=== PATIENT | female | born 1950 ===

== ENCOUNTER → 2020-03-21 | Outpatient (CLI) | payer MEDICARE, BC ==
--- NOTE | 2020-03-25 15:24 | RAD ---
DATE: 03/21/2020 2:53 PM EXAM: MAMMO [place] SCREENING BILATERAL HISTORY: Screening COMPARISON: 02/10/2018 Bilateral CC and MLO views of the breasts were performed. Bilateral breast tomosynthesis was performed in CC and MLO projections. This study was interpreted with the benefit of Computerized Aided Detection (CAD). FINDINGS: Breast Density: HETERO The breast parenchyma Is heterogeneously dense, which could reduce sensitivity of mammography. Breast parenchyma level C No suspicious masses, microcalcifications or architectural distortion is present to suggest malignancy in either breast. The visualized axillae are unremarkable. IMPRESSION: No mammographic evidence of malignancy. BI-RADS CATEGORY: 1 NEGATIVE RECOMMENDED FOLLOW-UP: 12M 12 MONTH FOLLOW-UP Annual screening mammography is recommended, unless clinically indicated sooner based on symptoms or change in physical exam. PQRS compliance statement: Patient information was entered into a reminder system with a target due date for the next mammogram. Mammography is a sensitive method for finding small breast cancers, but it does not detect them all and is not a substitute for careful clinical examination. A negative mammogram does not negate a clinically suspicious finding and should not result in delay in biopsying a clinically suspicious abnormality. "Our facility is accredited by the [employer] Mammography Program."
== END ==
LOC: MAMMO 14:42
PROVIDERS: ATTEND Internal Medicine
DX: Z12.31 Encounter for screening mammogram for malignant neoplasm of breast (principal); N64.89 Other specified disorders of breast
CPT/HCPCS: 77063; 77067

== ENCOUNTER 2020-10-11 15:22 | Emergency (ER) | payer MEDICARE, BC ==
[~2020-10-11] VITALS: Ht 152.4 cm; Wt 66.5 kg
--- NOTE | 2020-10-11 15:43 | PHYS DOC ---
Past History Past Medical History: Asthma, High Cholesterol, Hypertension Adult General Chief Complaint Chief Complaint: CHEST PAIN HPI HPI Patient is a 70-year-old female presenting for chest pain. Onset was approximately 2 hours prior to arrival while working at [employer]. Nothing known makes better or worse. Patient describes sharp pain that is deep over left breast with mild radiation into left shoulder. Timing of symptoms has been constant. Patient cites current pain as 7/10 in severity. Patient tried taking Tums, Pepto-Bismol and anti-gas medications in attempt to alleviate her symptoms without significant relief concerning her enough to transport herself here for evaluation. No prior cardiac history, no history of provocative cardiac testing in the past, she does take 81 mg aspirin daily and a statin. Denies tobacco, alcohol and illicit drug use. Review of Systems Review of Systems Fourteen body systems of review of systems have been reviewed. See HPI for pertinent positives and negative responses, other velazquez all other systems are negative, non-pertinent or non-contributory Allergies Allergies Allergies Coded Allergies Type Severity Reaction Last Updated Verified diclofenac Allergy Unknown 10/11/20 Yes fluoxetine Allergy Unknown 10/11/20 Yes Physical Exam Physical Exam Constitutional: Well developed, well nourished, no acute distress, non-toxic appearance. HENT: Normocephalic, atraumatic, bilateral external ears normal, oropharynx moist, no oral exudates, nose normal. Eyes: PERRLA, EOMI, conjunctiva normal, no discharge. Neck: Normal range of motion, no tenderness, supple, no stridor. Cardiovascular: Heart rate regular, sinus rhythm, no murmurs rubs or gallops Lungs & Thorax: Bilateral breath sounds clear to auscultation Abdomen: Bowel sounds normal, soft, no tenderness, no masses, no pulsatile masses. Nonsurgical abdomen, no peritoneal signs Skin: Warm, dry, no erythema, no rash. Back: No tenderness, no CVA tenderness. Extremities: No tenderness, no cyanosis, no clubbing, ROM intact, no edema. Neurologic: Alert and oriented X 3, grossly normal motor & sensory function, no focal deficits noted. Psychologic: Affect normal, judgement normal, anxious mood Current Patient Data Vital Signs Vital Signs Date Time Temp Pulse Resp B/P (MAP) Pulse Ox O2 Delivery O2 Flow Rate FiO2 10/11/20 15:34 98.1 66 21 136/63 (87) 95 Room Air Vital Signs Date Time Temp Pulse Resp B/P (MAP) Pulse Ox O2 Delivery O2 Flow Rate FiO2 10/11/20 15:50 70 136/63 10/11/20 15:34 98.1 21 95 Room Air Lab Results Laboratory Tests Test 10/11/20 15:35 White Blood Count 6.7 x10^3/uL Red Blood Count 4.33 x10^6/uL Hemoglobin 13.0 g/dL Hematocrit 39.8 % Mean Corpuscular Volume 92 fL Mean Corpuscular Hemoglobin 30 pg Mean Corpuscular Hemoglobin Concent 33 g/dL Red Cell Distribution Width 14.0 % Platelet Count 174 x10^3/uL Neutrophils (%) (Auto) 51 % Lymphocytes (%) (Auto) 30 % Monocytes (%) (Auto) 10 % Eosinophils (%) (Auto) 9 % Basophils (%) (Auto) 1 % Neutrophils # (Auto) 3.4 x10^3uL Lymphocytes # (Auto) 2.0 x10^3/uL Monocytes # (Auto) 0.6 x10^3/uL Eosinophils # (Auto) 0.6 x10^3/uL Basophils # (Auto) 0.1 x10^3/uL Sodium Level 143 mmol/L Potassium Level 4.0 mmol/L Chloride Level 106 mmol/L Carbon Dioxide Level 32 mmol/L Anion Gap 5 Blood Urea Nitrogen 20 mg/dL Creatinine 0.9 mg/dL Estimated GFR (Cockcroft-Gault) 61.7 BUN/Creatinine Ratio 22 Glucose Level 103 mg/dL Calcium Level 8.8 mg/dL Total Bilirubin 0.3 mg/dL Aspartate Amino Transf (AST/SGOT) 32 U/L Alanine Aminotransferase (ALT/SGPT) 48 U/L Alkaline Phosphatase 87 U/L Troponin I Quantitative < 0.017 ng/mL Total Protein 6.5 g/dL Albumin 3.3 g/dL Albumin/Globulin Ratio 1.0 Current Medications Medications (Trade) Dose Ordered Sig/Jean Route PRN Reason Start Time Stop Time Status Last Admin Dose Admin Aspirin (Aspirin Chewable) 162 mg 1X ONCE PO 10/11/20 15:45 10/11/20 15:46 DC 10/11/20 15:49 Nitroglycerin (Nitrostat) 0.4 mg PRN Q5MIN PRN SL CHEST PAIN 10/11/20 15:45 10/11/20 15:50 EKG EKG EKG ordered and interpreted by myself at 1532 hrs. as sinus rhythm at 63 bpm, unremarkable intervals, no axis deviation, no acute ischemic findings, no STEMI Radiology/Procedures Radiology/Procedures Exam: Chest one view INDICATION: Chest pain TECHNIQUE: Frontal view of the chest Comparisons: None FINDINGS: The cardiomediastinal silhouette is within normal limits. Pulmonary vessels are mildly prominent. Lung and pleural spaces are clear. IMPRESSION: Findings which could relate to minimal pulmonary edema Electronically signed by: Rosa Lopez MD (10/11/2020 4:07 PM) [facility] Heart Score C/O Chest Pain: Yes HEART Score for Chest Pain: HEART Score for Chest Pain Response (Comments) Value History Moderately Suspicious 1 ECG Normal 0 Age > 65 2 Risk Factors 1 or 2 Risk Factors 1 Troponin < Normal Limit 0 Total 4 Risk Factors: Risk Factors: DM, Current or recent (<one month) smoker, HTN, HLP, family history of CAD, obesity. Risk Scores: Risk Factors: DM, Current or recent (<one month) smoker, HTN, HLP, family history of CAD, obesity. Course & Med Decision Making Course & Med Decision Making Discussed with the patient all findings and diagnostic testing. I discussed most likely diagnosis of chest pain. I disclosed heart score and recommended admission for cardiac observation, patient declined. Patient with full capacity and asymptomatic at time of evaluation requesting to be discharged home citing good access to outpatient primary care physician and desire to have continued work-up in outpatient setting. As such, I stressed need for close outpatient follow-up to review today's ER visit. Strict return precautions were also discussed at length with good understanding by patient. Patient voiced understanding and agreement with the plan. Patient knows to come back for repeat evaluation if concerning signs or symptoms present prior to outpatient follow- up. Hemodynamically stable, ambulatory and well-appearing at time of disposition. Dragon Disclaimer Dragon Disclaimer This electronic medical record was generated, in whole or in part, using a voice recognition dictation system. Departure Departure: Impression: Primary Impression: Chest pain Disposition: HOME / SELF CARE / HOMELESS Condition: STABLE Referrals: SAUL EVANGELISTA MD (PCP) Patient Instructions: Chest Pain (Nonspecific) Additional Instructions: You were seen for chest pain. Your workup did not show any acute abnormalities today, but does not indicate that you do not have underlying cardiovascular disease. As discussed, it was recommended you stay for cardiac observation but you deferred. As such, it is vital that you follow up with your primary doctor and legal instructor for further evaluation and treatment. You should return to the ED if you develop worsening chest pain, shortness of breath, fever, abnormal sweating, leg swelling, or any other new or concerning symptoms. It was a pleasure to take care of you and I wish you the best going forward ITA PATRICIO DO Oct 11, 2020 15:43
[2020-10-11] MEDS ORDERED: NITROGLYCERIN SUBLINGUAL 0.4 MG BOTTLE OF 25. SL PRN (15:45)
[2020-10-11] MEDS ORDERED: ASPIRIN CHEWABLE 81 MG TABLET. PO ONE (15:45)
[2020-10-11 15:57] LABS: BASO # 0.1 x10^3/uL (0.0-0.2); BASO % 1 % (0-3); EOS # 0.6 x10^3/uL (0.0-0.7); EOS % 9 % (0-3); HEMATOCRIT 39.8 % (36.0-47.0); LYMPH % 30 % (24-48); MEAN CORPUSCULAR HEMOGLOBIN 30 pg (25-35); MEAN CORPUSCULAR HGB CONC 33 g/dL (31-37); MEAN CORPUSCULAR VOLUME 92 fL (79-100); MONO # 0.6 x10^3/uL (0.0-1.1); MONO % 10 % (0-9); NEUT # 3.4 x10^3uL (1.8-7.7); NEUT % 51 % (31-73); PLATELET COUNT 174 x10^3/uL (140-400); RED BLOOD COUNT 4.33 x10^6/uL (3.50-5.40); WHITE BLOOD COUNT 6.7 x10^3/uL (4.0-11.0)
[2020-10-11 16:00] LABS: CALCIUM 8.8 mg/dL (8.5-10.1); CREATININE 0.9 mg/dL (0.6-1.0); GFR 61.7
[2020-10-11 16:06] LABS: ALBUMIN 3.3 g/dL (3.4-5.0); TOTAL BILIRUBIN 0.3 mg/dL (0.2-1.0); TOTAL PROTEIN 6.5 g/dL (6.4-8.2)
--- NOTE | 2020-10-11 16:09 | RAD ---
Exam: Chest one view INDICATION: Chest pain TECHNIQUE: Frontal view of the chest Comparisons: None FINDINGS: The cardiomediastinal silhouette is within normal limits. Pulmonary vessels are mildly prominent. Lung and pleural spaces are clear. IMPRESSION: Findings which could relate to minimal pulmonary edema Electronically signed by: Rosa Lopez MD (10/11/2020 4:07 PM) [facility]
--- NOTE | 2020-10-11 17:06 | EKG ---
[address] [address] Test Date: 2020-10-11 Test Time: 15:30:53 Pat Name: TAYLOR NICHOLAS Department: Room: Gender: F Medical Reviewer: KO : [id number] Requested By: ITA PATRICIO Order Number: [id number] Reading MD: Measurements Intervals [place] Rate: 63 P: 0 MN: 180 QRS: 32 QRSD: 80 T: 36 QT: 390 QTc: 402 Interpretive Statements SINUS RHYTHM OTHERWISE NORMAL ECG RI6.02 No previous ECG available for comparison
[2020-10-11 17:36] VITALS: BP 100/57
== END 2020-10-11 17:36 | disposition home or self-care (01) ==
LOC: ER 15:22
DX: R07.89 Other chest pain (principal); J45.909 Unspecified asthma, uncomplicated; I10 Essential (primary) hypertension; Z88.6 Allergy status to analgesic agent
CPT/HCPCS: 36415; 71045; 80053; 84484; 85025; 93005; 99285-25

== ENCOUNTER → 2021-06-12 | Outpatient (CLI) | payer MEDICARE, BC ==
--- NOTE | 2021-06-12 16:26 | RAD ---
Bilateral digital screening 2-D and 3-D (digital breast tomosynthesis) mammogram: Reason for examination: Routine screening. Comparison: Mammograms from 03/21/2020 and 02/10/2018. Interpretation was made with the benefit of CAD. FINDINGS: Breast density: Category B. There are scattered areas of fibroglandular density. No new suspicious breast mass, malignant appearing calcifications, or architectural distortion is see n. IMPRESSION: No evidence of malignancy. Assessment: BI-RADS 1. Negative. Recommendation: Routine screening mammograms. The patient will receive a letter with the results in the mail. Patient information will be entered i nto the mammography reminder system with a target recall date for the next mammogram. A reminder jon er will be generated. Electronically signed by: Rach Acuna MD (06/12/2021 4:23 PM) [id number]
== END ==
LOC: MAMMO 10:55
PROVIDERS: ATTEND Internal Medicine
DX: Z12.31 Encounter for screening mammogram for malignant neoplasm of breast (principal)
CPT/HCPCS: 77063; 77067